=== PATIENT | female | born 1965 | race Caucasian/White ===

== ENCOUNTER 2016-07-28 09:22 | Inpatient (IN) | payer MEDICARE, MEDICAID, OTHER ==
[~2016-07-28] VITALS: Ht 157.5 cm; Wt 115.3 kg
[2016-07-29] MEDS ORDERED: VENL25TA PO (11:32)
[2016-07-29] MEDS ORDERED: IPRAAER INH (11:32)
[2016-07-29] MEDS ORDERED: MONT10TA4 PO (11:32)
[2016-07-29] MEDS ORDERED: ALBU1AER5 INH (11:32)
[2016-07-29] MEDS ORDERED: FLUT50SP EACH NARE (11:32)
[2016-07-29] MEDS ORDERED: ADDE20 PO (11:32)
[2016-07-29] MEDS ORDERED: PANT40TA3 PO (11:32)
[2016-07-29] MEDS ORDERED: FLUT1INH INH (11:32)
[2016-07-29] MEDS ORDERED: ACET500T36 PO (11:32)
[2016-08-12] MEDS ORDERED: METRONIDAZOLE 500 MG/100 ML ISONTONIC SOLN IV SCH (06:45)
[2016-08-12] MEDS ORDERED: DEXT 5%-NACL 0.9% 1000 ML INJ 1,000 ML IV SCH (06:45)
[2016-08-12] MEDS ORDERED: ceFAZolin 2 GM PREMIX 50 ML IV SCH (06:45)
[2016-08-12] MEDS: SODIUM CHLORID 0.9% 500 ML IV SCH ×2 (07:00→23:40)
[2016-08-12] MEDS ORDERED: HEPARIN SODIUM - SQ 10,000 UNITS/ML VIAL SQ SCH (07:00)
[2016-08-12] MEDS: LACTATED RINGER'S 1000 ML IV SCH (07:00)
[2016-08-12] MEDS ORDERED: METOPROLOL TARTRATE 25 MG TAB PO PRN (07:00)
[2016-08-12] MEDS ORDERED: INSULIN HUMAN REGULAR 1,000 UNITS/10 ML VIAL SQ PRN (07:00)
[2016-08-12 08:14] VITALS: BP 134/87; PULSE 67; RESP 20; TEMP 97.7; O2SAT 96
[2016-08-12] MEDS ORDERED: FAMOTIDINE 20 MG/2 ML VIAL ONE (12:32)
[2016-08-12] MEDS ORDERED: MIDAZOLAM HCL 2 MG/2 ML VIAL ONE (12:32)
[2016-08-12] MEDS ORDERED: ACETAMINOPHEN 1000 MG/100 ML VIAL IV ONE (12:43)
[2016-08-12] MEDS ORDERED: HYDROmorphone HCL PF 2 MG/ML VIAL ONE (12:44)
[2016-08-12] MEDS ORDERED: SUGAMMADEX SODIUM 200 MG/2 ML VIAL IV PUSH ONE ×2 (12:44)
[2016-08-12] MEDS ORDERED: DICLOFENAC SODIUM 37.5 MG/ML VIAL IV PUSH ONE (12:44)
[2016-08-12] MEDS ORDERED: METOCLOPRAMIDE HCL 10 MG/2 ML VIAL ONE (13:00)
[2016-08-12] MEDS ORDERED: PHENYLEPH/NS 1000 MCG/10 ML SYR IV ONE (13:07)
[2016-08-12] MEDS ORDERED: ePHEDrine/NS 25 MG/5 ML SYR IV ONE (13:07)
[2016-08-12] MEDS ORDERED: PROPOFOL 200 MG/20 ML AMP IV ONE (13:07)
[2016-08-12] MEDS ORDERED: SODIUM CHLORID 0.9% 500 ML INJ 500 ML IV ONE (13:08)
[2016-08-12] MEDS ORDERED: LACTATED RINGER'S 1000 ML INJ 2,000 ML IV ONE (13:08)
[2016-08-12] MEDS ORDERED: ONDANSETRON HCL 4 MG/2 ML VIAL IV PUSH ONE (13:08)
[2016-08-12] MEDS ORDERED: NORMOSOL R INJ 2,000 ML IV ONE (13:08)
[2016-08-12] MEDS ORDERED: LIDOCAINE 1%/EPINEPHrine 1:100,000 SOLN 30 ML VIAL INFIL ONE (14:10)
[2016-08-12] MEDS ORDERED: fentaNYL CITRATE 250 MCG/5 ML AMP ONE (15:05)
[2016-08-12] MEDS ORDERED: METHYLENE BLUE 100 MG/10 ML VIAL OTHER ONE (16:28)
[2016-08-12 18:39] LABS: BLOOD GAS BASE EXCESS -0.2 mmol/L (-2-2); BLOOD GAS CARBOXYHEMOGLOBIN 1.4 % (0-4); BLOOD GAS HCO3 25 mmol/L (22-26); BLOOD GAS METHEMOGLOBIN 1.4 % (0-2); BLOOD GAS O2 HGB SATURATION 96 % (90-100); BLOOD GAS OXYGEN CONTENT 16.6 Vol % (12.0-20.0); BLOOD GAS PCO2 45 mmHg (38-42); BLOOD GAS PO2 142 mmHg (61-120); BLOOD GAS TOTAL HGB 12.2 G/DL (12.0-16.0); TEMP CORR TO 98.6
[2016-08-12 18:40] LABS: CRITICAL VALUE NO; STAT YES
[2016-08-12 20:43] LABS: BLOOD GAS BASE EXCESS -1.1 mmol/L (-2-2); BLOOD GAS CARBOXYHEMOGLOBIN 1.8 % (0-4); BLOOD GAS HCO3 22 mmol/L (22-26); BLOOD GAS METHEMOGLOBIN 1.3 % (0-2); BLOOD GAS O2 HGB SATURATION 95 % (90-100); BLOOD GAS OXYGEN CONTENT 15.4 Vol % (12.0-20.0); BLOOD GAS PCO2 32 mmHg (38-42); BLOOD GAS PO2 109 mmHg (61-120); BLOOD GAS TOTAL HGB 11.4 G/DL (12.0-16.0); CRITICAL VALUE NO; FIO2 50 %; OXYGEN DEVICE O.R. ABG; STAT YES; TEMP CORR TO 98.6
[2016-08-12 20:48] LABS: AUTOMATED NEUTROPHIL # 12.6 TH/MM3 (1.8-7.7); BASOPHIL % 0.3 % (0.0-2.0); LYMPH % 6.6 % (9.0-44.0); MEAN CELL VOLUME 87.7 FL (80.0-100.0); MEAN CORPUSCULAR HEMOGLOBIN 29.2 PG (27.0-34.0); MEAN CORPUSCULAR HGB CONC 33.3 % (32.0-36.0); MONO % 5.7 % (0.0-8.0); NEUT % 87.4 % (16.0-70.0); PLATELET COUNT 260 TH/MM3 (150-450); RED BLOOD COUNT 3.99 MIL/MM3 (4.00-5.30); RED CELL DISTRIBUTION WIDTH 14.1 % (11.6-17.2); WHITE BLOOD COUNT 14.5 TH/MM3 (4.0-11.0)
[2016-08-12 21:00] LABS: HEMO FLAGS AUTO DIFF
[2016-08-12 21:31] LABS: PLATELET ESTIMATE SMEAR NORMAL (NORMAL); PLATELET MORPHOLOGY NORMAL (NORMAL); SCAN/DIFF AUTO DIFF CONFIRMED
[2016-08-12] MEDS ORDERED: Post-op Orders (for Pharmacy) MISC XX ONE (21:45)
[2016-08-12] MEDS ORDERED: ENALAPRILAT 2.5 MG/2 ML VIAL IV PRN (21:45)
[2016-08-12] MEDS ORDERED: ACETAMINOPHEN/HYDROcodone 325 MG/5 MG TAB PO PRN (21:45)
[2016-08-12] MEDS ORDERED: POTASSIUM CHLOR 40 MEQ PREMIX 100 ML IV PRN (21:45)
[2016-08-12] MEDS ORDERED: ONDANSETRON HCL 4 MG/2 ML VIAL IV PRN (21:45)
[2016-08-12] MEDS ORDERED: diphenhydrAMINE HCL 50 MG/ML VIAL IV PRN (21:45)
[2016-08-12] MEDS ORDERED: MORPHINE SULFATE 30 MG/30 ML PCA IV SCH (21:45)
[2016-08-12] MEDS ORDERED: ENALAPRILAT 1.25 MG/ML VIAL IV PRN (21:45)
[2016-08-12] MEDS ORDERED: POTASSIUM CHLOR 20 MEQ PREMIX 100 ML IV PRN (21:45)
[2016-08-12] MEDS ORDERED: BENZOCAINE 6 MG/MENTHOL 10 MG LOZENGE SUCK-ON PRN (21:45)
[2016-08-12] MEDS: SODIUM CHLORIDE 0.9% FLUSH 5 ML FLUSH IVF SCH (21:45)
[2016-08-12] MEDS ORDERED: NALOXONE HCL 0.4 MG/ML AMP IV PRN (21:45)
[2016-08-12] MEDS: PCA - TOTAL MG MORPHINE DELIVERED PER SHIFT SCH (22:00)
[2016-08-12 22:32] LABS: AUTOMATED NEUTROPHIL # 12.7 TH/MM3 (1.8-7.7); BASOPHIL % 0.1 % (0.0-2.0); HEMATOCRIT 37.6 % (35.0-46.0); HEMO FLAGS DIFF FINAL; LYMPH % 7.2 % (9.0-44.0); LYMPHOCYTE # 1.1 TH/MM3 (1.0-4.8); MEAN CELL VOLUME 87.9 FL (80.0-100.0); MEAN CORPUSCULAR HEMOGLOBIN 29.5 PG (27.0-34.0); MEAN CORPUSCULAR HGB CONC 33.6 % (32.0-36.0); NEUT % 85.7 % (16.0-70.0); PLATELET COUNT 297 TH/MM3 (150-450); RED BLOOD COUNT 4.28 MIL/MM3 (4.00-5.30); RED CELL DISTRIBUTION WIDTH 13.9 % (11.6-17.2); WHITE BLOOD COUNT 14.8 TH/MM3 (4.0-11.0)
[2016-08-12 22:48] LABS: BICARBONATE 25.7 MEQ/L (21.0-32.0); POTASSIUM 3.8 MEQ/L (3.5-5.1)
[2016-08-12] MEDS: metroNIDAZOLE 500 MG INJ 100 ML IV SCH (23:00)
[2016-08-12] MEDS: D5-NS + KCL 20 MEQ INJ 1,000 ML IV SCH (23:00)
[2016-08-13] VITALS (17 sets, daily range): BP systolic 147–159; BP diastolic 78–90; PULSE 77–93; RESP 16–20; TEMP 98–99.4; O2SAT 97–99
[2016-08-13] MEDS: D5-NS + KCL 20 MEQ INJ 1,000 ML IV SCH ×3 (04:14→16:10)
[2016-08-13] MEDS: KETOROLAC TROMETHAMINE 30 MG/ML (IVP) VIAL IVP PRN (04:25)
[2016-08-13] MEDS: PCA - TOTAL MG MORPHINE DELIVERED PER SHIFT SCH ×3 (06:00→22:00)
[2016-08-13] MEDS: HEPARIN SODIUM - SQ 10,000 UNITS/ML VIAL SQ SCH ×2 (06:25→18:00)
[2016-08-13] MEDS: metroNIDAZOLE 500 MG INJ 100 ML IV SCH ×2 (06:25→14:29)
[2016-08-13] MEDS: LACTATED RINGER'S 1000 ML IV SCH (06:42)
[2016-08-13 08:01] LABS: BASOPHIL % 0.2 % (0.0-2.0); EOSINOPHIL % 0.1 % (0.0-4.0); HEMATOCRIT 39.4 % (35.0-46.0); HEMO FLAGS DIFF FINAL; LYMPH % 10.7 % (9.0-44.0); LYMPHOCYTE # 1.3 TH/MM3 (1.0-4.8); MEAN CORPUSCULAR HEMOGLOBIN 29.7 PG (27.0-34.0); MEAN CORPUSCULAR HGB CONC 33.4 % (32.0-36.0); MONO % 6.3 % (0.0-8.0); NEUT % 82.7 % (16.0-70.0); PLATELET COUNT 271 TH/MM3 (150-450); RED BLOOD COUNT 4.42 MIL/MM3 (4.00-5.30); RED CELL DISTRIBUTION WIDTH 14.2 % (11.6-17.2); WHITE BLOOD COUNT 12.2 TH/MM3 (4.0-11.0)
[2016-08-13 08:09] LABS: BICARBONATE 25.8 MEQ/L (21.0-32.0); POTASSIUM 3.9 MEQ/L (3.5-5.1)
[2016-08-13] MEDS: PANTOPRAZOLE SODIUM 40 MG VIAL IVP SCH (08:23)
[2016-08-13] MEDS: ACETAMINOPHEN/HYDROcodone 325 MG/5 MG TAB PO PRN (08:29)
[2016-08-13] MEDS: SODIUM CHLORIDE 0.9% FLUSH 5 ML FLUSH IVF SCH ×2 (10:24→20:16)
--- NOTE | 2016-08-13 15:54 | HHI.PR ---
Subjective Remarks POD#1 ex lap, extensive ASH, robotic VIANEY/BSO, LAR Reports intermittent pain No nausea Objective Vital Signs Date Time Temp Pulse Resp B/P Pulse Ox O2 Delivery O2 Flow Rate FiO2 08/13/16 15:00 83 08/13/16 15:00 84 20 158/88 99 08/13/16 14:00 26 08/13/16 11:00 83 08/13/16 11:00 98.0 83 16 147/82 99 08/13/16 08:11 Nasal Cannula 2.00 08/13/16 07:00 93 08/13/16 07:00 98.2 93 19 159/88 97 08/13/16 06:13 16 08/13/16 06:08 16 08/13/16 06:00 16 08/13/16 05:00 78 08/13/16 04:00 79 08/13/16 03:00 98.0 84 19 149/82 97 08/13/16 03:00 80 08/13/16 02:00 78 08/13/16 01:00 80 08/13/16 00:00 77 08/12/16 23:15 97.7 81 16 173/91 98 Nasal Cannula 3 08/12/16 23:00 97 16 157/95 97 Nasal Cannula 3 08/12/16 22:45 95 16 164/90 97 Nasal Cannula 3 08/12/16 22:30 81 16 142/81 98 Nasal Cannula 3 08/12/16 22:15 84 16 166/94 98 Nasal Cannula 3 08/12/16 22:00 86 16 161/95 98 Nasal Cannula 3 08/12/16 22:00 16 08/12/16 21:45 99.4 85 18 167/91 96 Nasal Cannula 3 I/O 08/12/16 08/12/16 08/12/16 08/13/16 08/13/16 08/13/16 07:00 15:00 23:00 07:00 15:00 23:00 Intake Total 3800 ml 1128 ml Output Total 1850 ml 1470 ml Balance 1950 ml -342 ml Intake Oral 0 ml IV Total 1128 ml Other 3800 ml Output Urine Total 1000 ml 1470 ml Estimated Blood Loss 850 ml # Voids 1 # Bowel Movements 0 Result Diagram: 08/13/16 0616 08/13/16 0616 Objective Remarks Abdomen soft, nondistended, tender Dressings c/d/i Assessment and Plan Assessment and Plan Mobilize Margie Child MD Aug 13, 2016 15:54
--- NOTE | 2016-08-13 16:00 | MP ---
cc: JUAN CHILD M.D., KELLY L. MD DATE OF SURGERY: 08/12/2016 PREOPERATIVE DIAGNOSIS: 1. Complex pelvic mass. 2. Diverticulitis. POSTOPERATIVE DIAGNOSIS 1. Complex pelvic mass. 2. Diverticulitis. PROCEDURE: 1. Laparoscopy. 2. Robotic total abdominal hysterectomy with bilateral salpingo-oophorectomy. 3. Robotic extensive lysis of adhesions. 4. Robotic low anterior resection. SURGEON Juan Child MD. Wojciech. SECURITY CONTROL ROOM OFFICER: Teodoro ANESTHESIA General per ET tube ESTIMATED BLOOD LOSS 400 cc OPERATIVE INDICATIONS The patient is a 51-year-old female with diverticulitis with micro perforation. In addition, at the same hospitalization, she was noted have a complex pelvic mass. Dr. Jeffrey performed the initial laparoscopy with the initial lysis of adhesions and hysterectomy with bilateral salpingo-oophorectomy, please see his operative note for details. The patient was brought to the operating room, and placed in the supine position. After induction of general anesthesia, the patient was placed in Yosef stirrups. All bony prominences were carefully padded. The skin of the anterior abdominal wall, as well as the perineal area, was then prepped and draped in the usual sterile fashion. After discussion between Dr. Jeffrey and myself, the initial camera trocar was placed, which was a 10/12, 3 cm above the umbilicus in the midline. This was placed under direct vision using the laparoscope. CO2 insufflation was then undertaken and a brief abdominal survey was performed, with notation of some adhesions of omentum to the anterior abdominal wall but nothing which would preclude the robotic approach. The remainder of the port sites for my portion of the procedure were placed as follows. Please see Dr. Jeffrey note for some slight variations as far as which port he used for which. Just inside the right anterior superior iliac spine a 10/12 port was placed, this was my #1 port. An assist port was placed in the right midclavicular line just under the costal margin. This was a #[address] Jeffrey could use this as his #1 port. A #8 DaVinci port was then placed in the left midclavicular line just above the umbilicus and another #8 port was placed in the left anterior axillary line, on a line with the umbilicus. The patient was hydroplaned with head down and slightly to the right, and after evaluation of the complex pelvic mass and very large uterus, it was decided that Dr. Jeffrey should proceed first. He then proceeded with his portion of the procedure, please see his operative note for details. After he had completed his total abdominal hysterectomy with bilateral salpingo-oophorectomy, his specimen was placed on the right side of the abdomen for later retrieval when I made my incision for my anastomosis. The robot was then undocked. The patient was turned and the robot was re-docked over the left hip. The sigmoid colon, which was noted to be quite redundant but had been somewhat loosened from its adhesions, was retracted down and to the left. The mesentery on the right was then scored. Dissection continued in this plane posteriorly, down to the sacral promontory and over to the left. Unfortunately because of the previous dissection plane having been somewhat disturbed by Dr. Jeffrey I was not able to really appreciate the lie of the ureter, so I elected to proceed with a lateralized approach for the sigmoid colon. The sigmoid was retracted to the right and the lateral peritoneal attachments were dissected free until the left ureter was clearly identified. This was then swept away from the specimen, and dissection continued in this plane until I met my previous dissection from the right. At this point dissection continued inferiorly down posterior to the rectum, down to level of the distal rectum and up around the right side. There was quite a bit of adhesions anteriorly and the next period of time was spent very slowly and painstakingly dissecting the inflammatory area of the posterior wall of the vagina off of the rectum. Eventually we were able to clear that and create a plane between the vaginal cuff and the rectum. The rectum at this level was soft and pliable and appeared healthy circumferentially. The mesentery at this level was divided using the harmonic scalpel, and attention was then turned back to the superior hemorrhoidal vessels. A window was made around the vessels. A white load of the echelon Endo stapler was placed across the vessels at this level. This was closed and held for 30 seconds, fired, and removed. A site was then chosen for the distal resection, at the proximal/mid rectal level. A blue load of the Boles Endostapler was placed across the rectum at the level of the mesenteric division. This was closed, held for 30 seconds, fired, and removed. A sponge stick was then placed in the rectum and advanced to the rectal stump and lay nicely without tension. The 29 EEA stapler was then advanced as well through the anus and up to the rectal stump and lay nicely without twisting. At this point the proximal bowel was brought down, but I felt that I needed to release the lateral attachments of the descending colon somewhat and these were dissected free using electrocautery. There was noted to be a small serosal tear, and this was repaired in an interrupted [id number] fashion using 3-0 Vicryl. Eventually we had enough length to bring down into the pelvis and this came down nicely to the rectal stump. We then elected to proceed with the open portion of the procedure. The proximal staple line was then grasped with a locking grasper, and the uterus and ovary en bloc specimen was placed into the pelvis for easier retrieval. The robot was then undocked. A 12-15 cm transverse incision was 2/[address] from the umbilicus to the pubic tubercle. This was slightly higher than usual due to the patient's fairly large pannus. Using electrocautery, dissection was carried down to the fascia of the anterior abdominal wall. The anterior fascia was split the length of the skin incision. The medial fibers of the rectus abdominis muscle were then divided and the posterior fascia/peritoneum was then divided the length of the skin incision as well. The en bloc uterus, ovaries, and fallopian tube specimen was then grasped and gently extracted through the incision and sent for pathology. The wound protector was then placed, and the stapled proximal end of the bowel was grasped and pulled up and through the incision via the wound protector. A site was then chosen for proximal division of the bowel, above the level of the inflammatory changes. The mesentery at this level was serially divided and ligated using 0 Vicryl ties, and a pursestring stapling device was placed across the bowel at this level. The distal bowel was occluded with a Jeronimo clamp. The bowel was amputated, and taken to a back table where it was later opened and revealed diverticulitis but no other abnormalities. The anvil from the 29 EEA stapler was then placed into the cut end of the bowel and the previously placed pursestring suture was secured. There were some areas of diverticulosis which had to be teased out. There was one small diverticula which was actually sutured back and around the shaft of the anvil. Because of the patients extremely large body habitus, I did elect to proceed with her anastomosis laparoscopically. The posterior fascia of the pubic incision was closed in a running fashion using #1 PDS, and the anterior fascia at the suprapubic incision was closed in running fashion using #1 PDS. A damp sponge was placed into the wound and the wound was covered with a Tegaderm, and CO2 insufflation was resumed. The laparoscope was brought onto the field, placed into the peritoneal cavity, and all dissection beds were examined. There is no sign of any significant bleeding. At this point, the 29 EEA stapler was advanced through the anus and to the rectal stump without difficulty. The spike was then advanced just anterior to the staple line. The anvil was then into the spike, being careful that the bowel was not twisted. The stapler was then closed, held for 30 seconds, fired , and removed. The anastomosis appeared pink and healthy and healthy circumferentially, and both anastomotic rings appeared to be complete. A small amount of warm normal saline was placed into the pelvis and the proximal bowel was gently occluded with pressure. Air was insufflated into the rectum until tension was noted at the anastomosis, with no sign of any leakage. The air was desufflated to the extent possible, and the saline was suctioned out of the pelvis. The anastomosis lay in a nice orientation without tension. Because of her previously having some oozing, I did mist Laura throughout the pelvis, with no other sign of any bleeding noted. The 10/12 trocar sites, the camera site and the right lower quadrant site, were then closed using the crossbow closure device and 0 Vicryl suture. These were placed but not secured until the peritoneal cavity was desufflated. The peritoneal cavity was desufflated. The sutures were then secured. All wounds were copiously irrigated with warm normal saline. The skin at the suprapubic incision was closed in a running fashion, using 3-0 Vicryl, and the skin at the trocar sites were closed in an interrupted subcutaneous fashion, using 3-0 Vicryl. Steri-Strips and sterile dressing was then applied. All sponge, needle and sponge counts were correct and the patient was returned to the post anesthesia care unit in stable condition. MD JOSE Frankel/ewa /9:37 PM /3:30 PM JENNIFER
[2016-08-14] VITALS (13 sets, daily range): BP systolic 115–155; BP diastolic 55–88; PULSE 73–96; RESP 18–20; TEMP 98.1–99.9; O2SAT 94–98
[2016-08-14] MEDS: D5-NS + KCL 20 MEQ INJ 1,000 ML IV SCH ×5 (01:46→20:56)
[2016-08-14] MEDS: KETOROLAC TROMETHAMINE 30 MG/ML (IVP) VIAL IVP PRN ×2 (03:17→10:32)
[2016-08-14] MEDS: LACTATED RINGER'S 1000 ML IV SCH (05:28)
[2016-08-14] MEDS: HEPARIN SODIUM - SQ 10,000 UNITS/ML VIAL SQ SCH ×2 (05:28→18:38)
[2016-08-14] MEDS: PCA - TOTAL MG MORPHINE DELIVERED PER SHIFT SCH (05:29)
[2016-08-14] MEDS: SODIUM CHLORIDE 0.9% FLUSH 5 ML FLUSH IVF SCH ×2 (07:04→20:56)
[2016-08-14 07:53] LABS: AUTOMATED NEUTROPHIL # 10.2 TH/MM3 (1.8-7.7); BASOPHIL % 0.2 % (0.0-2.0); EOSINOPHIL # 0.3 TH/MM3 (0-0.4); EOSINOPHIL % 2.2 % (0.0-4.0); HEMATOCRIT 36.4 % (35.0-46.0); HEMO FLAGS DIFF FINAL; LYMPHOCYTE # 1.9 TH/MM3 (1.0-4.8); MEAN CELL VOLUME 90.7 FL (80.0-100.0); MEAN CORPUSCULAR HEMOGLOBIN 29.2 PG (27.0-34.0); MEAN CORPUSCULAR HGB CONC 32.2 % (32.0-36.0); NEUT % 74.6 % (16.0-70.0); PLATELET COUNT 267 TH/MM3 (150-450); RED BLOOD COUNT 4.02 MIL/MM3 (4.00-5.30); RED CELL DISTRIBUTION WIDTH 13.8 % (11.6-17.2); WHITE BLOOD COUNT 13.6 TH/MM3 (4.0-11.0)
[2016-08-14 08:24] LABS: BICARBONATE 29.6 MEQ/L (21.0-32.0); POTASSIUM 4.1 MEQ/L (3.5-5.1)
[2016-08-14] MEDS: PANTOPRAZOLE SODIUM 40 MG VIAL IVP SCH (08:57)
--- NOTE | 2016-08-14 11:34 | HHI.PR ---
Subjective Remarks C/R surg POD afebrile, VSS UO good myke PO +flatus Objective - Vital Signs Date Time Temp Pulse Resp B/P Pulse Ox O2 Delivery O2 Flow Rate FiO2 08/14/16 11:00 96 08/14/16 07:00 99.1 20 145/88 95 08/13/16 22:03 Nasal Cannula 2.00 Result Diagram: 08/14/1617 08/14/1617 Jesus Butcher MD Aug 14, 2016 11:34
[2016-08-14] MEDS: ACETAMINOPHEN 325 MG TAB PO PRN (14:16)
[2016-08-14] MEDS: ACETAMINOPHEN/HYDROcodone 325 MG/5 MG TAB PO PRN ×2 (14:35→20:55)
[2016-08-15] VITALS: BP 136/79; PULSE 84; RESP 20; TEMP 98.4; O2SAT 98
[2016-08-15] MEDS: KETOROLAC TROMETHAMINE 30 MG/ML (IVP) VIAL IVP PRN ×3 (01:00→15:14)
[2016-08-15] MEDS: HEPARIN SODIUM - SQ 10,000 UNITS/ML VIAL SQ SCH ×2 (05:26→20:24)
[2016-08-15 05:53] LABS: AUTOMATED NEUTROPHIL # 7.1 TH/MM3 (1.8-7.7); BASOPHIL # 0.1 TH/MM3 (0-0.2); BASOPHIL % 0.6 % (0.0-2.0); EOSINOPHIL # 0.6 TH/MM3 (0-0.4); EOSINOPHIL % 5.5 % (0.0-4.0); HEMATOCRIT 36.6 % (35.0-46.0); HEMO FLAGS DIFF FINAL; LYMPH % 21.7 % (9.0-44.0); LYMPHOCYTE # 2.4 TH/MM3 (1.0-4.8); MEAN CELL VOLUME 90.5 FL (80.0-100.0); MEAN CORPUSCULAR HEMOGLOBIN 29.7 PG (27.0-34.0); MEAN CORPUSCULAR HGB CONC 32.8 % (32.0-36.0); MONO % 8.1 % (0.0-8.0); NEUT % 64.1 % (16.0-70.0); PLATELET COUNT 267 TH/MM3 (150-450); RED BLOOD COUNT 4.04 MIL/MM3 (4.00-5.30); RED CELL DISTRIBUTION WIDTH 13.9 % (11.6-17.2)
[2016-08-15 06:37] LABS: BICARBONATE 26.2 MEQ/L (21.0-32.0)
[2016-08-15 06:42] LABS: POTASSIUM 4.6 MEQ/L (3.5-5.1)
[2016-08-15] MEDS: LACTATED RINGER'S 1000 ML IV SCH (07:00)
[2016-08-15 08:00] VITALS: BP 168/74; PULSE 83; RESP 18; TEMP 97.6; O2SAT 97
[2016-08-15] MEDS: D5-NS + KCL 20 MEQ INJ 1,000 ML IV SCH (08:59)
[2016-08-15] MEDS: PANTOPRAZOLE SODIUM 40 MG VIAL IVP SCH (09:00)
[2016-08-15] MEDS: SODIUM CHLORIDE 0.9% FLUSH 5 ML FLUSH IVF SCH ×2 (09:11→20:24)
[2016-08-15 12:00] VITALS: BP_SYST 170; BP_SYST 176; BP_DIAS 70; BP_DIAS 74; PULSE 87; RESP 18; TEMP 97.9; O2SAT 96
[2016-08-15] MEDS: SODIUM CHLORIDE 0.9% FLUSH 5 ML FLUSH IVF PRN ×2 (12:41→15:17)
[2016-08-15] MEDS: ACETAMINOPHEN/HYDROcodone 325 MG/5 MG TAB PO PRN ×2 (12:44→22:06)
[2016-08-15 15:00] VITALS: BP 158/86
[2016-08-15 16:00] VITALS: BP 135/89; PULSE 83; RESP 17; TEMP 97.7; O2SAT 98
[2016-08-15 20:00] VITALS: BP 100/48; PULSE 78; RESP 20; TEMP 98.2; O2SAT 96
--- NOTE | 2016-08-15 21:21 | HHI.PR ---
Subjective Remarks C/R surg POD afebrile, VSS UO good myke PO +flatus/BM Objective - Vital Signs Date Time Temp Pulse Resp B/P Pulse Ox O2 Delivery O2 Flow Rate FiO2 08/15/16 16:00 97.7 83 17 135/89 98 08/13/16 22:03 Nasal Cannula 2.00 Result Diagram: 08/15/16 0452 08/15/16 0452 Objective Remarks PE alert Abd - soft, wound dry, min tympany Jesus Butcher MD Aug 15, 2016 21:20
[2016-08-16] VITALS: BP 120/58; PULSE 74; RESP 18; TEMP 97.8; O2SAT 97
[2016-08-16] MEDS: ACETAMINOPHEN 325 MG TAB PO PRN ×2 (01:17→09:03)
[2016-08-16] MEDS: HEPARIN SODIUM - SQ 10,000 UNITS/ML VIAL SQ SCH (05:29)
[2016-08-16] MEDS: D5-NS + KCL 20 MEQ INJ 1,000 ML IV SCH (05:29)
[2016-08-16 08:00] VITALS: BP 120/59; PULSE 70; RESP 14; TEMP 97.5; O2SAT 97
--- NOTE | 2016-08-16 08:06 | PD.ONC.PN ---
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 states she has been OOB ambulating to bathroom liquid stool yesterday denies any n/v and + flatus pain controlled Objective Data Date Time Temp Pulse Resp B/P Pulse Ox O2 Delivery O2 Flow Rate FiO2 08/16/16 02:17 16 08/16/16 00:00 97.8 74 18 120/58 97 08/15/16 23:06 18 08/15/16 20:00 98.2 78 20 100/48 96 08/15/16 16:00 97.7 83 17 135/89 98 08/15/16 15:00 158/86 08/15/16 12:00 97.9 87 18 176/74 96 170/70 08/15/16 10:06 20 08/15/16 08:00 97.6 83 18 168/74 97 08/16/16 08/16/16 08/16/16 07:00 15:00 23:00 Intake Total 430 ml Balance 430 ml Result Diagram: 08/15/16 0452 08/15/16 045 Administered Medications Medications (Trade) Dose Ordered Sig/Bella Route PRN Reason Start Time Stop Time Status Last Admin Dose Admin Potassium Chloride/Dextrose/ Sod Cl (D5-NS + KCl 20 Meq Inj) 1,000 ml @ 75 mls/hr [id number] IV 08/12/16 21:34 08/16/16 05:29 IV Flush (NS Flush) 2 ml UNSCH PRN IVF FLUSH AFTER USING IV ACCESS 08/12/16 21:45 08/15/16 15:17 IV Flush (NS Flush) 2 ml BID IVF 08/12/16 21:45 08/15/16 09:11 Acetaminophen/ Hydrocodone Bitart ([place] 5-325 Mg) 2 tab Q6H PRN PO PAIN SCALE 5 TO 10 08/12/16 21:45 08/15/16 22:06 Acetaminophen (Tylenol) 650 mg Q4H PRN PO Temperature > 101F 08/12/16 21:45 08/16/16 01:17 Pantoprazole Sodium (Protonix Inj) 40 mg DAILY IVP 08/13/16 09:00 08/15/16 09:00 Enalaprilat (Vasotec Inj) 1.25 mg Q4H PRN IV SYS BP GREATER THAN 160 MMHG 08/12/16 21:45 08/15/16 12:41 Heparin Sodium (Porcine) (Heparin Inj) 5,000 units Q12H SQ 08/13/16 06:45 08/16/16 05:29 Objective Remarks GENERAL: Well-nourished, well-developed patient. SKIN: Warm and dry. HEAD: Normocephalic. EYES: No scleral icterus. No injection or drainage. CARDIOVASCULAR: Regular rate and rhythm without murmurs. RESPIRATORY: Breath sounds equal bilaterally. No accessory muscle use. GASTROINTESTINAL: Abdomen soft, non-tender, nondistended. obese band aids are C/ D/I +BS X 4 MUSCULOSKELETAL: Adequate muscle tone. NEUROLOGICAL: Awake, alert, and oriented x3. PSYCHIATRIC: Appropriate mood and affect; insight and judgment normal. 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 Flo Mandel Aug 16, 2016 08:06
--- NOTE | 2016-08-16 08:49 | MP ---
cc: JUAN UGALDE M.D.,TRAY DENNISON MD, PATRICIA C. MD DATE OF SURGERY: 08/12/2016 PREOPERATIVE DIAGNOSIS: 1. Complex pelvic mass, enlarged uterus. 2. Recent history of diverticulitis. POSTOPERATIVE DIAGNOSIS: 1. Complex pelvic mass, enlarged uterus. 2. Recent history of diverticulitis. 3. Extensive dense pelvic adhesions. PROCEDURE: Robotic-assisted laparoscopic hysterectomy, bilateral salpingo-oophorectomy with extensive lysis of adhesions. 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 ANESTHESIA: General endotracheal anesthesia. ESTIMATED BLOOD LOSS: 400 cc. IV FLUIDS: 1800 cc. URINE OUTPUT: 900 cc. HISTORY: This is a 51-year-old female who recently had signs and symptoms of diverticulitis, found to have a perforated diverticulum. In the process of imaging, she had a complex pelvic mass that measured at least 11-12 cm. At that time the uterus was quite enlarged, prominent. She was counseled regarding these issues. Surgical management was recommended for the history of perforated diverticulum. We had recommended surgical management because of the complex adnexal mass. We were able to coordinate surgery such that she was counseled and prepared for our surgery to be done in conjunction with Dr. Luna Ugalde of Colorectal Surgery. FINDINGS: Upon entry into the peritoneal cavity, the pelvis was essentially fixed, signs and symptoms of recent inflammatory condition from the diverticulitis, also changes suggestive of chronic preexisting endometriosis. The left ovarian mass was now 15-16 cm. The uterus was enlarged to 16 cm. The cul-de-sac was obliterated from adhesions. The colon was adherent to the posterior lower uterine segment and cervix. The mass was partially retroperitonealized and partially behind the left colon. The right tube and ovary grossly appeared normal. In the peritoneum there were no peritoneal implants that would be suggestive of neoplasm. There were some peritoneal implants sent for frozen that appeared to be inflammatory in nature. There was no significant adenopathy. STATEMENT OF COMPLEXITY: The complexity of this case was significantly increased due to the extensive adhesions. It is estimated that an additional 1-1/2 to 2 hours were spent just lysing adhesions to gain access, restore normal anatomy and to accomplish surgical objectives as well as body habitus, weight of 117 kg and modifier should be applied accordingly. PROCEDURE: The patient was taken to the operating room and placed in the dorsal lithotomy position after general endotracheal anesthesia was administered. A time-out was undertaken. The patient was identified by sight recognition and hospital ID braleslie and the proposed procedure was reviewed and confirmed. She was carefully positioned in padded Yosef stirrups. Her arms were padded and secured to the sides. She was further secured to the operating table with eggcrate padding and tape in an across-chest, [id number] fashion. All sites were noted to be properly aligned with no malalignments or pressure points. She was prepped in sterile fashion, draped below the waist. The cervix was grasped, uterine cavity sounded to approximately 14 cm. A large V-Care manipulator was inserted and secured in the usual fashion, Kniney catheter placed in the bladder. She was returned to low lithotomy position. A change of sterile gloves was undertaken. We completed draping in anticipation of laparoscopy, confirmed that an orogastric airway was in the stomach. With manual elevation of the abdominal wall, a 5-mm cannula was introduced into the left upper abdomen. An atraumatic entry was confirmed, carbon dioxide gas was insufflated and a 12-mm cannula placed in the midline above the umbilicus, an 8-mm cannulae was placed in the right upper abdomen, left lateral abdomen. The original 5-mm cannula was exchanged for an 8-mm cannula. The anatomy was surveyed with the findings as described above. The robotic system was brought into the operative field and attached in the usual fashion. Monopolar scissors, fenestrated bipolar forceps and ProGrasp manipulators placed in arms #1, 2, 3 respectively and I took my place at the surgeon's console. An additional port placement had been made as Dr. Ugalde was present as we positioned the patient and set up entry sites to accomplish the objectives of both our surgical procedures. Extensive time was spent in sharp dissection, lysing adhesions, freeing adhesions to establish access to the cul-de-sac to dissect the colon off the lower uterine segment and cervix to gain retroperitoneal access to free up the retroperitoneal mass to mobilize the colon enough to free the mass from the colon and left pelvic sidewall and necessary steps. As noted above, collectively took approximately 1-1/2 to 2 hours. The right round ligament was isolated, cauterized, transected. The anterior and posterior leaves of the broad ligament were opened. The right ureter was identified. The right infundibulopelvic ligament was isolated to the level of the pelvic brim where it was cauterized and transected. The posterior peritoneum was further opened along the right side of the uterus and cervix and the right vesicouterine peritoneum was dissected off the lower uterine segment and cervix, the right uterine vessels were skeletonized and cauterized. Attention was turned to the left side. The left round ligament was isolated, cauterized and transected. Further retroperitoneal dissection was carried out. The left ureter was identified. The left infundibulopelvic ligament was isolated. It was isolated to the level of the pelvic brim where it was cauterized and transected. Some dark brown fluid was draining from the posterior aspect of the mass where the capsule had ruptured and this was suctioned and irrigated; this decreased the size of the mass. Sharp dissection was used to then circumferentially free the attachments of the mass until it could be elevated out of the pelvis and the left side of the uterus and posterior cul-de-sac were exposed. The posterior peritoneum was further dissected along the left side of the uterus and cervix and the left vesicouterine peritoneum was dissected off the lower uterine segment and cervix. The left uterine vessels were skeletonized and cauterized. Now the uterine vessels were transected. The cardinal, paracervical and uterosacral ligaments were isolated, cauterized and transected in a stepwise fashion and then a circumferential colpotomy was performed the cervix from the upper vagina. The specimen clearly could not be delivered transvaginally due to the markedly enlarged size relative to pelvic outlet and so the en block specimen consisting of uterus, cervix, bilateral tubes and ovaries was placed in the right abdomen for later retrieval. Instruments 1 and 3 were exchanged for needle drivers as a 0 Vicryl suture was introduced. Vaginal cuff was closed starting at the left corner, full-thickness closure incorporating the posterior peritoneum as the uterosacral ligament, tied via instrument tie. Countertraction was held across the running closure, full-thickness across the vaginal apex to the contralateral corner where it was similarly fixed, secured to the uterosacral ligaments, tied via instrument tie. The needle was cut and removed. The pelvis was thoroughly irrigated, small bleeders rendered hemostatic. The integrity of the bladder was confirmed by filling the bladder with methylene blue. There were no areas of blue, no thinning of the bladder, certainly no extravasation of dye, good margin between the vaginal cuff, suture line and bladder, good peristalsis of ureter and the bladder was drained. It was felt that all reasonable surgical objectives had been completed, the specimens left in the abdomen. The case was turned over to Dr. Luna Ugalde who performed the sigmoid resection and related steps and who, with discussion and plan that she would remove the gynecologic specimens when she makes an open incision to remove the colon specimen. Preliminary and final counts were correct at the conclusion of our case. It is noted that we did place three RayTec sponges in the peritoneal cavity, each of which were removed transvaginally individually with ring forceps, inspected and noted to be removed in their entirety prior to closure of the vaginal cuff and inspection confirmed no remaining foreign objects in the peritoneal cavity other than the tissue specimens as described to be retrieved later in the case. Please see Dr. Luna Ugalde' op note. MD NGHIA Tucker/LINDA /8:01 AM /8:14 AM
--- NOTE | 2016-08-16 09:03 | HHI.PR ---
Subjective Remarks POD#4 ex lap, extensive ASH, robotic VIANEY/BSO, LAR Comfortable Wants to go home Objective Vital Signs Date Time Temp Pulse Resp B/P Pulse Ox O2 Delivery O2 Flow Rate FiO2 08/16/16 08:00 97.5 70 14 120/59 97 08/16/16 02:17 16 08/16/16 00:00 97.8 74 18 120/58 97 08/15/16 23:06 18 08/15/16 20:00 98.2 78 20 100/48 96 08/15/16 16:00 97.7 83 17 135/89 98 08/15/16 15:00 158/86 08/15/16 12:00 97.9 87 18 176/74 96 170/70 08/15/16 10:06 20 I/O 08/15/16 08/15/16 08/15/16 08/16/16 08/16/16 08/16/16 07:00 15:00 23:00 07:00 15:00 23:00 Intake Total 0 ml 240 ml 480 ml 430 ml Output Total 600 ml 500 ml Balance -600 ml -260 ml 480 ml 430 ml Intake Oral 0 ml 240 ml 480 ml 240 ml IV Total 190 ml Output Urine Total 600 ml 500 ml # Voids 1 2 # Bowel Movements 0 0 0 Result Diagram: 08/15/16 04508/15/16451 Objective Remarks Abdomen soft, nondistended, tender Wounds clean Assessment and Plan Assessment and Plan Home today Followup 3 weeks. Margie Child MD Aug 16, 2016 09:02
[2016-08-16] MEDS: PANTOPRAZOLE SODIUM 40 MG VIAL IVP SCH (09:04)
[2016-08-16] MEDS: SODIUM CHLORIDE 0.9% FLUSH 5 ML FLUSH IVF SCH (09:04)
[2016-08-16] MEDS ORDERED: HYDR-3516 PO (09:05)
--- NOTE | 2016-08-16 09:52 | HHI.DS ---
Discharge Summary Admission Date Aug 12, 2016 at 05:44 Discharge Date: Aug 16, 2016 Admitting Diagnosis Pelvic mass diverticular disease (1) Pelvic mass in female Diagnosis: Principal (2) Diverticular disease Diagnosis: Principal Procedures Robotic assisted Laparoscopic hysterectomy with BSO and resection of pelvic mass , with sigmoid resection (by Dr. Child). Brief History This is a 51 year old female who has a history of diverticular disease and in the process of workup, imaging shown a pelvic mass. She was seen in [facility] oral surgeon/onc clinic for recommendations and elected for definitive surgery. CBC/BMP: 08/15/16 0452 08/15/16 0452 Significant Findings Laboratory Tests Test 08/14/16 08/15/16 07:17 04:52 White Blood Count 13.6 TH/MM3 (4.0-11.0) Neutrophils (%) (Auto) 74.6 % (16.0-70.0) Monocytes (%) (Auto) 9.0 % (0.0-8.0) 8.1 % (0.0-8.0) Neutrophils # (Auto) 10.2 TH/MM3 (1.8-7.7) Monocytes # (Auto) 1.2 TH/MM3 (0-0.9) Anion Gap 4 MEQ/L (5-15) Blood Urea Nitrogen 3 MG/DL (7-18) 6 MG/DL (7-18) Random Glucose 108 MG/DL (74-106) Calcium Level 8.2 MG/DL 8.2 MG/DL (8.5-10.1) (8.5-10.1) Eosinophils (%) (Auto) 5.5 % (0.0-4.0) Eosinophils # (Auto) 0.6 TH/MM3 (0-0.4) Chloride Level 109 MEQ/L (98-107) PE at Discharge pt alert and oriented in NAD heart RRR no MMR lungs CTA bilat abd: band aids are c/d/i Hospital Course Hospital course was uneventful. Pt was transferred from PACU to cardia ICU for close monitoring per GI surgery protocol. She was stable and met criteria to be transferred to floor. Patient's bowel function has returned with + flatus. She has been eating without nausea or vomiting and was cleared for discharge per Dr. Child on . Patent is cleared for discharge from owner oral surgeon/onc standpoint and will follow up in our office in 2 weeks for post op visit. Pt Condition on Discharge: Good Discharge Disposition: Discharge Home Discharge Instructions DIET: Follow Instructions for: Low Fiber Diet Activities you can perform: Shower/Bath Activities to avoid: Lifting/Bending, Driving Follow up Referrals: Appointment for Follow Up - [address] Jeffrey Colorectal Surgery - 3 Weeks with Margie Child MD New Medications: Hydrocodone-Acetaminophen (Hydrocodone-Acetaminophen) 5-325 mg Tab 1-2 TAB PO Q6H PRN PAIN SCALE 1 TO 10 #50 TAB Continued Medications: Albuterol Powder Inh (Proair Respiclick Inh) 90 Mcg/Act Aerp 1 PUFF INH Q4H PRN SHORTNESS OF BREATH #1 Ref 0 INHALER Amphetamine-Dextroamphetamine (Adderall) 20 Mg Tab 20 MG PO DAILY Avoid late evening doses. Space doses at least 4 to 6 hours if more than once/day dosing. Hyperactivity Control #30 Ref 0 TAB Fluticasone Nasal [place] (Fluticasone Nasal [place]) 50 Mcg/Act Naspr 50 MCG EACH NARE BID 50 mcg/spray Allergy Management #1 Ref 0 BOTTLE Fluticasone-Vilanterol Inh (Breo Ellipta Inh) 100-25 Mcg/Act Inh 1 PUFF INH DAILY Use daily at the same time. #1 Ref 0 INHALER Ipratropium-Albuterol Inh (Combivent Respimat Inh) 20-100 Longterm/Act Aero 1 PUFF INH QID PRN WHEEZING #1 Ref 0 INHALER Montelukast (Montelukast) 10 Mg Tab 10 MG PO DAILY #30 Ref 0 TAB Pantoprazole (Pantoprazole) 40 Mg Tab 40 MG PO DAILY Reflux #30 Ref 0 TAB Venlafaxine (Effexor) 25 Mg Tab 25 MG PO DAILY #60 Ref 0 TAB Discontinued Medications: Acetaminophen (Acetaminophen Extra Strength) 500 Mg Tab 1000 MG PO TID PRN PAIN SCALE 1 TO 10 Ref 0 TAB Flo Mandel Aug 16, 2016 09:52
[2016-08-16 10:03] VITALS: RESP 16
--- NOTE | 2016-08-16 13:17 | MD ---
cc: JUAN UGALDE M.D. ADMISSION DATE: 08/12/2016 DISCHARGE DATE: 08/16/2016 ADMISSION DIAGNOSIS 1. Diverticulitis. 2. Complex pelvic mass. DISCHARGE DIAGNOSIS 1. Diverticulitis. 2. Complex pelvic mass. 3. Adhesions. PROCEDURE 1. Robotic extensive lysis of adhesions. 2. Robotic total abdominal hysterectomy with bilateral salpingo-oophorectomy. 3. Robotic low anterior resection. HOSPITAL COURSE The patient is a 51-year-old female who was noted to have a complicated diverticulitis as well as a complex pelvic mass. She was admitted to hospital on the August 12, 2016 after an outpatient bowel prep. She was taken to the operating room where she underwent the above-named procedures. Postoperatively she did well with rapid return of bowel and bladder function. She was discharged home on postoperative day #4 with instructions to follow-up with myself and Dr. Jeffrey in the office. Final pathology is not available at the time of discharge. MD JOSE Frankel/EDUARDO /9:11 AM /1:14 PM JENNIFER
== END 2016-08-16 11:31 | disposition home or self-care (01) | DRG 331 ==
LOC: HSDI 08-12 05:44 → EDSTATUS 08-12 12:00 → HCIN 08-12 23:45 → N07A 08-14 15:55
PROVIDERS: ADMIT Obstetrics & Gynecology Gynecologic Oncology; ATTEND Obstetrics & Gynecology Gynecologic Oncology
PROC: 0UT20ZZ Resection of Bilateral Ovaries, Open Approach (ICD-10-PCS; 2016-08-12)
PROC: 0DNP4ZZ Release Rectum, Percutaneous Endoscopic Approach (ICD-10-PCS; 2016-08-12)
PROC: 0UTC0ZZ Resection of Cervix, Open Approach (ICD-10-PCS; 2016-08-12)
PROC: 0UT70ZZ Resection of Bilateral Fallopian Tubes, Open Approach (ICD-10-PCS; 2016-08-12)
PROC: 0UNG4ZZ Release Vagina, Percutaneous Endoscopic Approach (ICD-10-PCS; 2016-08-12)
PROC: 0UNF4ZZ Release Cul-de-sac, Percutaneous Endoscopic Approach (ICD-10-PCS; 2016-08-12)
PROC: 0UN94ZZ Release Uterus, Percutaneous Endoscopic Approach (ICD-10-PCS; 2016-08-12)
PROC: 8E0W4CZ Robotic Assisted Procedure of Trunk Region, Percutaneous Endoscopic Approach (ICD-10-PCS; 2016-08-12)
PROC: 0JBC3ZX Excision of Pelvic Region Subcutaneous Tissue and Fascia, Percutaneous Approach, Diagnostic (ICD-10-PCS; 2016-08-12)
PROC: 0DTN0ZZ Resection of Sigmoid Colon, Open Approach (ICD-10-PCS; principal; 2016-08-12 13:03)
PROC: 0UT90ZZ Resection of Uterus, Open Approach (ICD-10-PCS; 2016-08-12 13:03)
DX: K57.32 Diverticulitis of large intestine without perforation or abscess without bleeding (principal); J44.9 Chronic obstructive pulmonary disease, unspecified; R19.00 Intra-abdominal and pelvic swelling, mass and lump, unspecified site; N80.0 Endometriosis of uterus; E65 Localized adiposity; N95.0 Postmenopausal bleeding; N73.6 Female pelvic peritoneal adhesions (postinfective); J45.909 Unspecified asthma, uncomplicated; K21.9 Gastro-esophageal reflux disease without esophagitis; E66.9 Obesity, unspecified; N83.9 Noninflammatory disorder of ovary, fallopian tube and broad ligament, unspecified; Z80.0 Family history of malignant neoplasm of digestive organs; Z80.41 Family history of malignant neoplasm of ovary; Z80.7 Family history of other malignant neoplasms of lymphoid, hematopoietic and related tissues; Z88.5 Allergy status to narcotic agent
CPT/HCPCS: 80048; 82805; 85025; 86850; 86900; 86901; 88305; 88307; 88309; 88331; 94150; C9113; J0131; J0690; J1130; J1170; J1644; J1885; J2250; J2270; J2370; J2405; J2765; J3010; J3480; J7040; J7120

== ENCOUNTER → 2016-07-29 | Outpatient (CLI) | payer MEDICARE, MEDICAID ==
[~2016-07-29] MED LIST: ACET500T36 PO; ADDE20 PO; ALBU1AER5 INH; FLUT1INH INH; FLUT50SP EACH NARE; HYDR-3516 PO; IPRAAER INH; MONT10TA4 PO; PANT40TA3 PO; VENL25TA PO
--- NOTE | 2016-07-29 11:58 | RADRPT ---
EXAM DATE/TIME: 07/29/2016 11:43 [place] COMPARISON: No previous studies available for comparison. INDICATIONS : Evaluate for pneumonia, pneumothorax, or communicable disease. Pre-op for hysterectomy scheduled on . MEDICAL HISTORY : None. SURGICAL HISTORY : None. ENCOUNTER: Initial ACUITY: 1 day PAIN SCORE: 0/10 LOCATION: Bilateral chest FINDINGS: PA and lateral views of the chest demonstrate the lungs to be symmetrically aerated without evidence of mass, infiltrate or effusion. The cardiomediastinal contours are unremarkable. Osseous structure s are intact. CONCLUSION: No acute disease. Gurdeep Chan MD on July 29, 2016 at 11:56 Board Certified Radiologist. This report was verified electronically.
[2016-07-29 12:06] LABS: AUTOMATED NEUTROPHIL # 4.9 TH/MM3 (1.8-7.7); BASOPHIL # 0.1 TH/MM3 (0-0.2); EOSINOPHIL # 0.4 TH/MM3 (0-0.4); EOSINOPHIL % 5.6 % (0.0-4.0); HEMATOCRIT 37.9 % (35.0-46.0); HEMO FLAGS DIFF FINAL; MEAN CELL VOLUME 87.9 FL (80.0-100.0); MEAN CORPUSCULAR HEMOGLOBIN 29.8 PG (27.0-34.0); MEAN CORPUSCULAR HGB CONC 33.9 % (32.0-36.0); MONO % 8.1 % (0.0-8.0); NEUT % 60.3 % (16.0-70.0); PLATELET COUNT 297 TH/MM3 (150-450); RED CELL DISTRIBUTION WIDTH 13.8 % (11.6-17.2); WHITE BLOOD COUNT 8.1 TH/MM3 (4.0-11.0)
[2016-07-29 12:12] LABS: INTERNATIONAL NORMALIZED RATIO 0.9 RATIO; PROTHROMBIN TIME - PATIENT 10.2 SEC (9.8-11.6)
[2016-07-29 12:26] LABS: ALT (GPT) 25 U/L (10-53); ANION GAP 5 MEQ/L (5-15); AST (GOT) 11 U/L (15-37); BICARBONATE 29.2 MEQ/L (21.0-32.0); BLOOD UREA NITROGEN 15 MG/DL (7-18); CHLORIDE 106 MEQ/L (98-107); GLOMERULAR FILTRATION RATE 82 ML/MIN (>89); GLUCOSE,FASTING 84 MG/DL (74-99); POTASSIUM 4.6 MEQ/L (3.5-5.1); SODIUM (NA) 140 MEQ/L (136-145)
[2016-07-29 12:28] LABS: ALKALINE PHOSPHATASE 62 U/L (45-117); TOTAL BILIRUBIN ADULT 0.3 MG/DL (0.2-1.0)
== END ==
LOC: CPRE 10:47
PROVIDERS: ATTEND Obstetrics & Gynecology Gynecologic Oncology
DX: Z01.811 Encounter for preprocedural respiratory examination (principal); Z01.812 Encounter for preprocedural laboratory examination; R19.01 Right upper quadrant abdominal swelling, mass and lump
CPT/HCPCS: 36415; 71020; 80053; 85025; 85610; 85730